=== PATIENT | female | born 1955 | race Caucasian/White ===

== ENCOUNTER 2021-03-11 05:07 | Observation (INO) ==
--- NOTE | 2021-02-12 13:10 | PAT Medication Instructions ---
Medication Instructions Date of Service February 12, 2021 Home Medications ibuprofen 600 mg PO BID PRN meloxicam 15 mg PO QAM ASK your surgeon for instructions ibuprofen 600 mg PO BID PRN meloxicam 15 mg PO QAM NOTHING TO EAT OR DRINK AFTER MIDNIGHT THE NIGHT BEFORE SURGERY. Other Notes If you have any questions please call us at [phone] or [phone] or [phone] or [phone]
--- NOTE | 2021-02-13 10:52 | Anesthesiology Consultation ---
Date of Service February 13, 2021 Assessment & Plan (1) Encounter for pre-operative examination: COVID Status: As of 02/13 assessment, patient denies travel to endemic area, known exposure/sick contacts, or symptoms of COVID19. Patient advised to adhere to social distancing guidelines, wear a mask in public and avoid large crowds or unnecessary travel in the 2 weeks leading up to surgery. Preoperative COVID19 testing to be completed prior to surgery per surgeon's arrangements (03/07). Patient encouraged to be extra cautious/conscientious with COVID precautions between COVID testing and surgery. Chart Review Chart Review: Acceptable Risk for Surgery and Patient seen in Pre Admission Testing Teaching & Discussion Instructed NPO after midnight before surgery, except medications with 15 cc of water. Medication instructions provided according to the PAT guidelines. History Surgery Operation Date: 03/11/21 07:15 Proposed Procedures p Left Anterior Total Hip Arthroplasty - Saul Donaldson DO Height/Weight Height: 5 ft 2 in Weight: 85.8 kg Allergies Allergy/AdvReac Type Severity Reaction Status Date / Time No Known Allergies Allergy Verified 02/11/21 16:05 Medications Home Medications Medication Instructions Recorded Confirmed Last Taken ibuprofen 600 mg PO BID PRN 02/11/21 02/11/21 Unknown meloxicam 15 mg PO QAM 02/11/21 02/11/21 Unknown Past Medical History Medical History Chronic back pain LOWER BACK Elevated blood pressure reading No medications. Pt to see PCP prior to surgery. Osteoarthritis Exercise / Class Metabolic Activity II 4-5 Yardwork/Stairs/Walk up hill Past Family History Family History Father Family history of diabetes mellitus Past Surgical History Surgical History History of bilateral tubal ligation History of tonsillectomy Past Anesthesia History No Hx of Anesthesia Complications and No Family Hx of Anesthesia Complications History of PONV No Hx of PONV and No Hx of Motion Sickness Social History Smoking Status: Never smoker Do You Dip or Chew Tobacco: No Hx Alcohol Use: No Hx Substance Use: No Review of Systems Pt denies any recent chest pain, shortness of breath, palpitations, cough, fever, URI, or uncontrolled acid reflux. Physical Exam Vital Signs BP: 164/87 P: 82bpm SPO2: 96% RA T: 98.2 F R: 16 ENMT Mouth: + dentures and + edentulous Thyromental Distance: > or= 3.5 Finger Breadths Mallampati Class: II Neck neck extension not limited Respiratory normal respiratory effort, lungs clear to auscultation Cardiovascular RRR, no murmur, no edema Vessels: no carotid bruit Lab Results Anesthesia Preop Results Results Anesthesia Widget: WBC 7.40 K/uL (4.8-10.8) 02/13/21 Hgb 15.1 g/dL (12.0-16.0) 02/13/21 Hct 43.7 % (37-47) 02/13/21 Plt 317 K/uL (130-400) 02/13/21 Na 141 mmol/L (136-145) 02/13/21 K 3.4 mmol/L (3.5-5.1) L 02/13/21 Cl 112 mmol/L (98-107) H 02/13/21 CO2 25 mmol/L (21-32) 02/13/21 BUN 19 mg/dl (7-18) H 02/13/21 Creat 0.82 mg/dl (0.6-1.2) 02/13/21 Glucose Level 95 mg/dl (70-99) 02/13/21 PT 10.0 Seconds (9.0-12.0) 02/13/21 PTT 24.6 Seconds (21.0-31.0) 02/13/21 INR 1.0 (0.9-1.1) 02/13/21 HA1c 5.3 % (4.5-5.6) 02/13/21 Urine Color Dark Yellow 02/13/21 Urine Appearance Clear (Clear) 02/13/21 Urine pH 5.0 (4.5-7.5) 02/13/21 Urine Specific [place] 1.035 (1.000-1.030) H 02/13/21 Urine Protein Negative (Negative) 02/13/21 Urine Glucose (UA) Negative (Negative) 02/13/21 Urine Ketones Trace (Negative) H 02/13/21 Urine Blood Negative (Negative) 02/13/21 Urine Nitrite Negative (Negative) 02/13/21 Urine Bilirubin Negative (Negative) 02/13/21 Urine Urobilinogen Negative (Negative) 02/13/21 Urine Leukocyte Esterase Negative (Negative) 02/13/21 Blood Type A Positive 02/13/21 Antibody Screen NEGATIVE 02/13/21 Testing Electrocardiogram Date: 02/13/21 Findings: + NSR @ (74bpm) Chest X-Ray Date: 02/13/21 Findings: + NAD
--- NOTE | 2021-02-28 18:11 | History & Physical Report ---
Date of Service March 11, 2021 Assessment & Plan (1) Degenerative joint disease of left hip: I have indicated the patient for left anterior total hip replacement. The risks, benefits and complications of surgery were explained to the patient which include but not limited to infection, acute blood loss, DVT/PE, injury to nerves, vessels, bone, soft tissue, arthrofibrosis, chronic pain, failure of the prosthesis, hip dislocation, leg length discrepancy, need for additional surgery, cardiac and pulmonary events and . The patient wished to proceed with surgery and informed consent was obtained at this time. We will plan for 81mg ASA BID post-operatively for DVT prophylaxis. Upon discharge the patient will be discharged home with home health services. Appropriate clearances by PCP were obtained. History of Present Illness Chief Complaint: Left hip pain/DJD Primary Care Provider: KALPANA PCP The patient is a 66 year old female who presents with complaints of severe left hip pain and DJD. The patient has failed outpatient conservative treatments to this point which included NSAIDs, activity modification, home exercise program. The patient's pain and limited function have progressed to the point where they severely hinder their activities of daily living and they no longer tolerate exercise programs. They are requesting to proceed with total hip replacement surgery. Allergies Allergy/AdvReac Type Severity Reaction Status Date / Time No Known Allergies Allergy Verified 03/11/21 05:39 Home Medications Medication Instructions Recorded Confirmed Type ibuprofen 600 mg PO BID PRN 02/11/21 03/11/21 History meloxicam 15 mg PO QAM 02/11/21 03/11/21 History Past Med/Surg History Medical History Chronic back pain LOWER BACK Elevated blood pressure reading No medications. Pt to see PCP prior to surgery. 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 Constitutional: WD/WN, vitals as above Eyes: PERRL, conjunctivae normal, anicteric sclerae ENMT: external ear and nose normal, oropharynx normal Neck: trachea midline, no thyromegaly Respiratory: normal respiratory effort, lungs clear to auscultation Cardiovascular: RRR, no murmur, no edema Gastrointestinal (Abdomen): normal bowel sounds, soft, nontender, no hepatosplenomegaly Musculoskeletal: no cyanosis or clubbing, extremities motor strength 5/5 Skin: no rashes, warm and dry Neurologic: patellar DTR's 2+ bilat, sensation intact Psychiatric: A+Ox3, euthymic affect Lymphatic: no cervical or axillary lymphadenopathy Results & Data Results & Data ([facility]) Diagnostic Findings Multiple views of the hip demonstrates severe DJD with complete loss of the joint space. +osteophytes, +sclerosis, +subchondral cysts.
[2021-03-11] MEDS ORDERED: TRANEXAMIC ACID 1,000 MG **IV Intra-op IV SCH (06:00)
[2021-03-11] MEDS ORDERED: ROPIVACAINE 0.5% HCL/PF 150 MG, BUPIVACAINE 0.75% MPF 20 ML, EPINEPHrine 30MG/30ML (OR ... INSTIL SCH (06:00)
[2021-03-11] MEDS ORDERED: FAMOTIDINE 20 MG TAB PO SCH (06:00)
[2021-03-11] MEDS ORDERED: LR 500ML BOLUS, THEN 15ML/HR IV SCH (06:00)
[2021-03-11] MEDS ORDERED: METOCLOPRAMIDE HCL 10 MG TABLET PO SCH (06:00)
[2021-03-11] MEDS ORDERED: GABAPENTIN 600 MG DOSE PO SCH (06:00)
[2021-03-11] MEDS ORDERED: CeleBREX 200 MG CAP PO SCH ×2 (06:00→12:00)
[2021-03-11] MEDS ORDERED: ceFAZolin 2000MG 2,000 MG/15 ML SYR IV SCH (06:00)
[2021-03-11] MEDS ORDERED: ACETAMINOPHEN 500 MG TAB PO SCH (06:00)
[2021-03-11] MEDS ORDERED: TRANEXAMIC ACID 1,000 MG **IV Pre-op IV SCH (06:00)
[2021-03-11] MEDS ORDERED: BUPIVACAINE 0.5 % 5 MG/1 ML PF 10ML VIAL ONE (06:22)
[2021-03-11] MEDS ORDERED: MIDAZOLAM HCL 1 MG/ML 2ML VIAL ONE (06:41)
[2021-03-11] MEDS ORDERED: LIDOCAINE 2% 2 ML VIAL/AMP(20MG/ML) INFIL ONE (06:41)
[2021-03-11] MEDS ORDERED: fentaNYL citrate 100 MCG/2 ML VIAL ONE (06:41)
[2021-03-11] MEDS ORDERED: PROPOFOL IV EMULSION 10 MG/ML 20 ML VIAL IV ONE ×2 (06:41→07:43)
[2021-03-11] MEDS ORDERED: ORTHO JOINT ANESTHETIC ONE (06:42)
--- NOTE | 2021-03-11 06:46 | History & Physical Bridge Note ---
Date of Service March 11, 2021 History & Physical Bridge Note I have examined the patient, reviewed the History & Physical and in the interval since the performance of the History & Physical I have noted the following changes of clinical significance: no changes noted
[2021-03-11] MEDS ORDERED: ePHEDrine sulfate 50 MG/ML AMP IV PRN (06:59)
[2021-03-11] MEDS ORDERED: ONDANSETRON INJ 2 MG/ML 2 ML VIAL IV PRN ×2 (06:59→11:41)
[2021-03-11] MEDS ORDERED: PHENYLEPHRINE 100MCG/ML 5ML SYR IV PRN (06:59)
[2021-03-11] MEDS ORDERED: LABETALOL HCL IV 5 MG/ML 20ML IV PRN (06:59)
[2021-03-11] MEDS ORDERED: fentaNYL citrate 100 MCG/2 ML VIAL IV PRN (06:59)
[2021-03-11] MEDS ORDERED: HYDROmorphone INJ 1 MG/ML SYRINGE IV PRN (06:59)
[2021-03-11] MEDS ORDERED: ATROPINE SULFATE 0.1 MG/ML 10ML SYR IV PRN (06:59)
[2021-03-11] MEDS ORDERED: ONDANSETRON INJ 2 MG/ML 2 ML VIAL ONE (07:42)
--- NOTE | 2021-03-11 08:48 | Post Operative Brief Note ---
Immediate Post Op Note v1 Date of Surgery March 11, 2021 Pre & Post Diagnosis Operation Date: 03/11/21 07:00 Pre-Op Diagnosis: Osteoarthritis Left Hip Post-Op Diagnosis: Osteoarthritis Left Hip I identified the patient and participated in the time-out.: Yes Procedure Operation Date: 03/11/21 07:00 Actual Procedures p Left Anterior Total Hip Arthroplasty(Left) - Saul Donaldson DO Surgeon Saul Donaldson DO Lead Pastor Donavon Bolaños Estimated Blood Loss 165 Findings Consistent with Post-Op Diagnosis Fluids See anesthesia report Specimens Femoral head Drains Hemovac Drain Anesthesia Type Spinal MAC Complications none Disposition Disposition: Recovery Room Overlapping Procedure I was present for: the critical portions of procedure. I was immediately available: during the entire case. Back up surgeon: was not required during procedure.
--- NOTE | 2021-03-11 08:50 | Operative Report ---
Post Operative Report Pre & Post Diagnosis Operation Date: 03/11/21 07:00 Pre-Op Diagnosis: Osteoarthritis Left Hip Post-Op Diagnosis: Osteoarthritis Left Hip I identified the patient and participated in the time-out.: Yes Procedure Operation Date: 03/11/21 07:00 Actual Procedures p Left Anterior Total Hip Arthroplasty(Left) - Saul Donaldson DO Surgeon Saul Donaldson DO Account Executive Software Sales Donavon Bolaños Estimated Blood Loss 165 Findings Consistent with Post-Op Diagnosis Fluids See anesthesia report Specimens femoral head Anesthesia Type Spinal MAC Complications none Disposition Disposition: Recovery Room Indications The patient is a 66-year-old female who presents with severe progressive left hip DJD who has failed outpatient conservative treatments. I indicated the patient for a anterior total hip replacement and the risks and benefits were explained in detail which include but not limited to infection, bleeding, blood clot, damage to surrounding bone, nerves, vessels, soft tissue, hip dislocation, failure of the prosthesis, leg length discrepancy, need for additional surgery and . The patient agreed to proceed with replacement of the hip and informed consent was obtained. Appropriate clearances were obtained. Description of Procedure COMPONENTS USED: [employer] hip system: Acetabulum size 48, femur size 4 high offset, femoral head 32+0, liner 40x32, acetabular screw 25 mm x 1. DESCRIPTION OF PROCEDURE: Following satisfactory spinal anesthesia, the patient was placed supine on the OR table. The right leg was placed in the well leg brito and the left leg in the traction device. The left leg was prepared with ChloraPrep and draped sterilely. A surgical timeout was performed, patient identified and site carson verified. Appropriate antibiotics were given. A standard anterior approach in the interval between the sartorius and tensor muscles was performed. Dissection was carried down through subcutaneous tissues. Electrocautery was utilized for hemostasis. Circumflex femoral vessels were identified, tied and ligated. The anterior capsular fat pad was removed and the capsulotomy was performed revealing the arthritic femoral neck and head. A femoral neck cut was made with reciprocating saw and the bone fragments removed. The acetabular self-retraining retractor was placed. Acetabular reaming was completed under fluoroscopic guidance, a 48 shell was impacted into an anatomic position and secured with a acetabular screw. Local anesthetic was placed and following irrigation, the polyethylene liner was placed. The femur was placed into position of external rotation, extension and adduction. Femoral canal was prepared up to the size 4 high offset. Trial reduction with a 32+0 neck length head showed good soft tissue tension, leg lengths restored, and good fit and fill of the proximal canal using fluoroscopic landmarks. The hip was dislocated. The trial component was removed. The final implant was placed. The hip was irrigated with sterile saline solution and reduced. A Betadine soak was performed. After 3 minutes, the hip was once more irrigated with copious sterile saline solution with bacitracin. [place]-incisional soft tissue was injected utilizing [place] Orthomix which includes a combination of Ropivicaine 0.5% 150mg, Bupivicaine 0.5%/Epinephrine 1:200,000 30ml, Toradol 30mg, Dexamethasone 4mg, Ketamine 10mg, Clonidine 100mcg and NSS 30ml solution. The capsule was then closed with 1-0 Vicryl interrupted figure of eight sutures. The fascia was closed with a running suture of #1 Vicryl, the subcutaneous tissues with 2-0 Vicryl and the skin was closed with wilbert and a sterile dry dressing was applied which included rosalba incisional VAC. The patient tolerated the procedure well and was transported to PACU in stable condition. Due to the complex nature of the procedure, the entire surgery was performed with the operational assistance of Donavon Bolaños PA-C. The infertility medical assistant, under direct supervision, was involved in the actual performance of all aspects of the surgical procedure including patient positioning, hemostasis, tissue retraction, instrument management and wound closure. I attest to the content of the Intraoperative Record and any orders documented therein. Any exceptions are noted below.
--- NOTE | 2021-03-11 09:44 | Fluoroscopy Report ---
INTRAOPERATIVE RADIOGRAPHS CLINICAL HISTORY: Left hip arthroplasty. Fluoroscopy time: 39 seconds. FINDINGS: 2 spot fluoroscopic images of the left hip from an arthroplasty procedure are presented. A bipolar left hip arthroplasty is in near-anatomic alignment. A single cortical lag screw transfixes t he acetabular cup. There is no evidence of fracture on these fluoroscopic views. IMPRESSION: Intraoperative left hip arthroplasty images as above. Electronically signed by: Ken Lockhart M.D. 03/11/2021 9:43 AM
--- NOTE | 2021-03-11 09:48 | XRay Report ---
SINGLE VIEW PELVIS; SINGLE VIEW LEFT HIP CLINICAL HISTORY: Postoperative examination. FINDINGS: An AP portable view of the hips and pelvis with a crosstable lateral portable view of the l eft hip are obtained. A bipolar left hip arthroplasty is in near-anatomic alignment. A single cortica l lag screw transfixes the acetabular cup. No acute fracture is identified. There are expected postop erative changes overlying the left hip including skin clips, subcutaneous gas, a surgical drain, and soft tissue swelling. IMPRESSION: Expected postoperative findings status post left hip arthroplasty. No acute fracture is s een. ACT 112: Negative or not required by law. Electronically signed by: Ken Lockhart M.D. 03/11/2021 9:47 AM
--- NOTE | 2021-03-11 10:13 | Anesthesiology Progress Note ---
Date of Service March 11, 2021 Anesthesia Post Procedure Vital Signs Vital Signs: Temp Pulse Pulse Resp BP BP Pulse Ox 03/11/21 10:00 71 18 138/90 98 03/11/21 09:50 36.1 C L 65 16 129/78 96 03/11/21 09:40 63 19 138/78 100 03/11/21 09:30 67 18 129/72 100 03/11/21 09:20 76 18 117/80 100 03/11/21 09:11 36.2 C L 79 18 115/56 L 95 03/11/21 05:43 37 C 78 18 167/96 H 96 Transfer of Care Handoff Completed per policy Notes Mental Status: alert / awake / arousable Patient Amnestic to Procedure: Yes Nausea / Vomiting: adequately controlled Pain: adequately controlled Airway Patency, RR, SpO2: stable & adequate BP & HR: stable & adequate Hydration State: stable & adequate Neuraxial Anesthesia: was administered and sensory block is resolving Anesthetic Complications: no major complications apparent and Pt Satisfied with anesthetic care
[2021-03-11] MEDS ORDERED: HYDROmorphone INJ 0.5 MG/0.5 ML SYR IV PRN (11:41)
[2021-03-11] MEDS ORDERED: NALOXONE HCL 0.4 MG/1 ML VIAL/CARP IV PRN (11:41)
[2021-03-11] MEDS ORDERED: SODIUM CHLORIDE 0.9% 1000ML 1,000 ML IV SCH (11:41)
[2021-03-11] MEDS ORDERED: bisacodyL 10 MG SUPP PR PRN (11:41)
[2021-03-11] MEDS ORDERED: diphenhydrAMINE Capsule 25 MG CAP PO PRN (11:41)
[2021-03-11] MEDS ORDERED: MAGNESIUM HYDROXIDE SUSP 30 ML UDC PO PRN (11:41)
[2021-03-11] MEDS ORDERED: METOCLOPRAMIDE HCL INJ 5 MG/ML 2 ML VIAL IV PRN (11:41)
--- NOTE | 2021-03-11 12:16 | Hospitalist Consultation ---
Date of Consultation March 11, 2021 Assessment & Plan (1) Degenerative joint disease of left hip: - POD#[address] Donaldson - activity and wound care orders as per ortho - pain control with bowel regimen - PT/OT - monitor H/H for acute blood loss anemia and transfuse blood products PRN - EBL 165cc (2) DVT prophylaxis: -TEDs/SCDs and Aspirin 81 mg twice daily as per orthopedics Thank you for this consultation. We will follow the patient with you during their hospital stay. You can reach a member of the [facility] Hospitalist Team 12/04 via the [facility] in [place] [facility]. Supervising Physician Co-Signing Physician Notes Pt was seen and examined. Agreed with Kasie ECHEVERRIA exam, assessment and plan. 66-year-old female with PMH osteoarthritis, status post left BONITA today performed by Dr. Donaldson. No post op complication. Pain control. Continue incentive spirometry. PT/OT as per ortho. Fall precaution. Will monitor H/H. MD Rian History of Present Illness Reason for Consultation: Postop medical management Requesting Physician: Dr. Donaldson Attending Physician: Dr. Modi History of Present Illness 66-year-old female with PMH osteoarthritis, and other problems listed below who is status post left BONITA today by Dr. Donaldson. Postoperatively, the patient is doing well. She reports her pain is well controlled. She denies numbness or tingling to lower extremities. No chest pain or shortness of breath. Denies abdominal pain and nausea. No lightheadedness or dizziness. She has not voided since surgery. Allergies Allergy/AdvReac Type Severity Reaction Status Date / Time No Known Allergies Allergy Verified 03/11/21 05:39 Home Medications Medication Instructions Recorded Confirmed Type acetaminophen 1,000 mg PO Q8 PRN #90 tab 03/11/21 Rx aspirin 81 mg PO BID #56 tab 03/11/21 Rx celecoxib [Celebrex] 200 mg PO BID PRN #30 cap 03/11/21 Rx oxycodone 5 mg PO Q6H PRN #30 tab MDD 4 03/11/21 Rx sennosides [Senokot] 17.2 mg PO HS PRN #30 tab 03/11/21 Rx Patient History Medical History Chronic back pain LOWER BACK Elevated blood pressure reading No medications. Pt to see PCP prior to surgery. 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 Other Information That Helps Us Care for You: No Feels Safe at Home: Yes Safety Concerns: Feels Safe At This Time Assistive Devices: Wheelchair Review of Systems Review of Systems: ROS per HPI, all other systems reviewed and negative Physical Exam Constitutional: WD/WN, vitals as above Eyes: PERRL, conjunctivae normal, anicteric sclerae ENMT: external ear and nose normal, oropharynx normal Respiratory: normal respiratory effort, lungs clear to auscultation Cardiovascular: Rate/Rhythm: regular rate and regular rhythm Vessels: normal peripheral pulses Extremities: + edema (+1 edema BLE) Gastrointestinal (Abdomen): normal bowel sounds, soft, nontender, no hepatosplenomegaly Musculoskeletal: no cyanosis or clubbing, extremities motor strength 5/5 S/p left hip surgery, surgical dressing dry and intact, CSM checks intact to LLE Skin: no rashes, warm and dry Neurologic: PERRL, EOMI, accommodation nl, no face palsy, no dysarthria Psychiatric: A+Ox3, euthymic affect Results & Data Results & Data ([facility]) Vital Signs (Past 12 Hours) Vital Signs Temp Pulse Pulse Resp BP BP Pulse Ox 03/11/21 11:15 68 18 139/79 95 03/11/21 11:00 63 14 138/77 95 03/11/21 10:45 36.3 C L 62 16 136/75 97 03/11/21 10:30 36.4 C L 73 18 131/74 97 03/11/21 10:20 65 18 132/79 95 03/11/21 10:10 64 16 136/77 97 03/11/21 10:00 71 18 138/90 98 03/11/21 09:50 36.1 C L 65 16 129/78 96 03/11/21 09:40 63 19 138/78 100 03/11/21 09:30 67 18 129/72 100 03/11/21 09:20 76 18 117/80 100 03/11/21 09:11 36.2 C L 79 18 115/56 L 95 03/11/21 05:43 37 C 78 18 167/96 H 96
[2021-03-11] MEDS: DOCUSATE SODIUM 100 MG CAP PO SCH ×2 (13:12→19:54)
[2021-03-11] MEDS: KETOROLAC TROMETHAMINE 15 MG/ML VIAL IV SCH ×3 (13:12→22:36)
[2021-03-11] MEDS: MULTIVITAMIN TAB PO SCH (13:12)
[2021-03-11] MEDS: ACETAMINOPHEN 500 MG TAB PO SCH ×2 (13:13→22:36)
[2021-03-11] MEDS: ceFAZolin 2000MG 2,000 MG/15 ML SYR IV SCH ×2 (14:03→22:36)
[2021-03-11] MEDS: oxyCODONE HCL IR 5 MG TAB (IMMEDIATE RELEASE) PO PRN ×2 (14:03→19:53)
[2021-03-11] MEDS ORDERED: SENNA 8.6 MG TAB PO SCH (21:00)
--- NOTE | 2021-03-11 21:54 | Orthopedic Progress Note ---
Date of Service March 11, 2021 Assessment & Plan (1) Degenerative joint disease of left hip: s/p Left anterior BONITA -ancef x 24 -DVT ppx: SCDs, TEDs, 81mg ASA BID -WBAT LLE -PT/OT -PO XR demonstrates a well aligned well fixed prosthesis without fracture/dislocation -am labs -DC planning Admission and Anticipated Discharge Date Admission Date: March 11, 2021 Subjective Post Operative Progress Note Patient seen sitting in chair at bedside, comfortable, denies complaints, pain well controlled, no acute issues. Review of Systems Review of Systems: All systems reviewed & are unremarkable except as noted in HPI & below Constitutional: as per Subjective / HPI Physical Exam Physical Exam: LLE NVSI +EHL/FHL/TA/GS SILT grossly, +2 DP pulse, compartments soft NT, dressing cdi. Constitutional: WD/WN, vitals as above Results & Data ([facility]) Vital Signs (Past 12 Hours) Vital Signs Temp Pulse Pulse Resp BP Pulse Ox 03/11/21 19:22 36.8 C 67 16 145/77 H 95 03/11/21 14:39 36.8 C 68 20 157/87 H 97 03/11/21 13:44 36.6 C 71 20 137/75 96 03/11/21 12:45 36.5 C 76 20 139/78 96 03/11/21 12:19 36.5 C 77 20 146/75 H 96 03/11/21 11:40 36.6 C 77 16 158/91 H 95 03/11/21 11:15 68 18 139/79 95 03/11/21 11:00 63 14 138/77 95 03/11/21 10:45 36.3 C L 62 16 136/75 97 03/11/21 10:30 36.4 C L 73 18 131/74 97 03/11/21 10:20 65 18 132/79 95 03/11/21 10:10 64 16 136/77 97 03/11/21 10:00 71 18 138/90 98
[2021-03-12] MEDS: oxyCODONE HCL IR 5 MG TAB (IMMEDIATE RELEASE) PO PRN ×3 (01:46→11:56)
[2021-03-12] MEDS: ACETAMINOPHEN 500 MG TAB PO SCH ×2 (05:29→13:43)
[2021-03-12] MEDS: KETOROLAC TROMETHAMINE 15 MG/ML VIAL IV SCH (05:30)
[2021-03-12 05:58] LABS: Basophils # (auto) 0.02 K/uL (0-0.2); Basophils % (auto) 0.2 %; Eosinophils # (auto) 0.06 K/uL (0-0.5); Eosinophils % (auto) 0.7 %; Hematocrit (blood only) 35.4 % (37-47); Hemoglobin 11.7 g/dL (12.0-16.0); Immature Granulocytes # (auto) 0.01 K/uL (0.00-0.02); Immature Granulocytes % (auto) 0.1 %; Lymphocytes # (auto) 1.98 K/uL (1.2-3.4); Lymphocytes % (auto) 21.7 %; Mean Corpuscular Hemoglobin 31.3 pg (25-34); Mean Corpuscular Hgb Conc 33.1 g/dL (32-36); Mean Corpuscular Volume 94.7 fL (80-100); Mean Platelet Volume 9.6 fL (7.4-10.4); Monocytes # (auto) 0.65 K/uL (0.11-0.59); Monocytes % (auto) 7.1 %; Neutrophils % (auto) 70.2 %; Platelet Count 273 K/uL (130-400); RDW Coefficient of Variation 12.5 % (11.5-14.5); RDW Standard Deviation 43.2 fL (36.4-46.3); Red Blood Count 3.74 M/uL (4.2-5.4); White Blood Count 9.12 K/uL (4.8-10.8)
[2021-03-12 06:35] LABS: BUN Creatinine Ratio 28.5 (10-20); Calcium 8.5 mg/dl (8.5-10.1); Est GFR (African American) 92.5 ml/min; Est GFR (Non-African American) 79.8 ml/min; Potassium 4.1 mmol/L (3.5-5.1)
--- NOTE | 2021-03-12 07:38 | Orthopedic Progress Note ---
Date of Service March 12, 2021 Assessment & Plan (1) Degenerative joint disease of left hip: s/p Left anterior BONITA POD#1 -ancef x 24 -DVT ppx: SCDs, TEDs, 81mg ASA BID -WBAT LLE -PT/OT -PO XR demonstrates a well aligned well fixed prosthesis without fracture/dislocation -am labs - as above, hgb 11.7 -DC planning - home with HH Admission and Anticipated Discharge Date Admission Date: March 11, 2021 Subjective Post Operative Progress Note Patient seen sitting in chair at bedside, comfortable, denies complaints, pain well controlled, no acute issues. Denies F/C/N/V/SOB/CP. Review of Systems Review of Systems: All systems reviewed & are unremarkable except as noted in HPI & below Constitutional: as per Subjective / HPI Physical Exam Physical Exam: LLE NVSI +EHL/FHL/TA/GS SILT grossly, +2 DP pulse, compartments soft NT, dressing cdi. Constitutional: WD/WN, vitals as above Eyes: PERRL, conjunctivae normal, anicteric sclerae ENMT: external ear and nose normal, oropharynx normal Neck: trachea midline, no thyromegaly Respiratory: normal respiratory effort, lungs clear to auscultation Cardiovascular: RRR, no murmur, no edema Gastrointestinal (Abdomen): normal bowel sounds, soft, nontender, no hepatosplenomegaly Musculoskeletal: no cyanosis or clubbing, extremities motor strength 5/5 Skin: no rashes, warm and dry Neurologic: patellar DTR's 2+ bilat, sensation intact Psychiatric: A+Ox3, euthymic affect Lymphatic: no cervical or axillary lymphadenopathy Results & Data ([facility]) Vital Signs (Past 12 Hours) Vital Signs Temp Pulse Resp BP Pulse Ox 03/12/21 05:56 37.1 C 70 16 160/75 H 95 03/12/21 03:29 36.9 C 71 16 155/74 H 97 03/11/21 22:36 36.9 C 69 16 136/73 98 Laboratory Results 03/12/21 03/12/21 Range/Units 05:30 05:30 WBC 9.12 (4.8-10.8) K/uL RBC 3.74 L (4.2-5.4) M/uL Hgb 11.7 L (12.0-16.0) g/dL Hct 35.4 L (37-47) % MCV 94.7 (80-100) fL MCH 31.3 (25-34) pg MCHC 33.1 (32-36) g/dL RDW Std Deviation 43.2 (36.4-46.3) fL RDW Coeff of Eliezer 12.5 (11.5-14.5) % Plt Count 273 (130-400) K/uL MPV 9.6 (7.4-10.4) fL Immature Gran % (Auto) 0.1 % Neut % (Auto) 70.2 % Lymph % (Auto) 21.7 % [place] % (Auto) 7.1 % Eos % (Auto) 0.7 % Baso % (Auto) 0.2 % Neut # (Auto) 6.40 (1.4-6.5) K/uL Lymph # (Auto) 1.98 (1.2-3.4) K/uL [place] # (Auto) 0.65 H (0.11-0.59) K/uL Eos # (Auto) 0.06 (0-0.5) K/uL Baso # (Auto) 0.02 (0-0.2) K/uL Immature Gran # (Auto) 0.01 (0.00-0.02) K/uL Sodium 138 (136-145) mmol/L Potassium 4.1 (3.5-5.1) mmol/L Chloride 109 H (98-107) mmol/L Carbon Dioxide 27 (21-32) mmol/L Anion Gap 2.0 L (3-11) BUN 22 H (7-18) mg/dl Creatinine 0.78 (0.6-1.2) mg/dl Est Cr Clr Drug Dosing 73.0 ml/min Est GFR ( Amer) 92.5 ml/min Est GFR (Non-Af Amer) 79.8 ml/min BUN/Creatinine Ratio 28.5 H (10-20) Glucose 98 (70-99) mg/dl Calcium 8.5 (8.5-10.1) mg/dl
[2021-03-12] MEDS: MULTIVITAMIN TAB PO SCH (08:12)
[2021-03-12] MEDS: DOCUSATE SODIUM 100 MG CAP PO SCH (08:12)
[2021-03-12] MEDS ORDERED: ASPIRIN 81 MG ECTAB PO SCH (09:00)
--- NOTE | 2021-03-12 12:35 | Communication Note ---
Date of Service: March 12, 2021 Progressing well with PT. Pain controlled. Plan for dc to home today.
--- NOTE | 2021-03-12 14:29 | Hospitalist Progress Note ---
Date of Service March 12, 2021 Assessment & Plan (1) Degenerative joint disease of left hip: - POD#[address] Donaldson - activity and wound care orders as per ortho - pain control with bowel regimen - PT/OT - monitor H/H for acute blood loss anemia and transfuse blood products PRN Anemia - acute blood loss/ dilutional - current Hgb 11.7 (preop Hgb ~ 15) - post op anemia expected, no need for blood transfusion - pt has no concerning symptoms (2) DVT prophylaxis: -TEDs/SCDs and Aspirin 81 mg twice daily as per orthopedics Thank you for this consultation. We will follow the patient with you during their hospital stay. You can reach a member of the [facility] Hospitalist Team 12/04 via the [facility] role in [place] [facility]. Admission and Anticipated Discharge Date Admission Date: March 11, 2021 Subjective Patient seen in postop follow-up Currently she feels quite well, denies any fevers, chills, chest pain, shortness of breath Reports good appetite, passing gas but no BM yet, voiding without difficulty otherwise Pain well controlled Reports her family at home will be helping her on discharge Review of Systems Review of Systems: All systems reviewed & are unremarkable except as noted in HPI & below Constitutional: no fever and no chills Respiratory: no cough and no dyspnea Cardiovascular: no chest pain and no palpitations Gastrointestinal: no abdominal pain, no nausea and no vomiting Physical Exam Physical Exam: Constitutional: WD/WN, vitals as above Eyes: PERRL, EOMI, conjunctivae normal, anicteric sclerae ENMT: external ear and nose normal, oropharynx normal Respiratory: normal respiratory effort, lungs clear to auscultation Cardiovascular: Rate/Rhythm: regular rate and regular rhythm Vessels: normal peripheral pulses Extremities: + edema (+1 edema BLE) Gastrointestinal (Abdomen): normal bowel sounds, soft, nontender Musculoskeletal: extremities motor strength 5/5 S/p left hip surgery, surgical dressing dry and intact, CSM checks intact to LLE Skin: no rashes, warm and dry Neurologic: PERRL, EOMI,no face palsy, no dysarthria Psychiatric: A+Ox3, euthymic affect Results & Data Results & Data ([facility]) Vital Signs (Past 12 Hours) Vital Signs Temp Pulse Pulse Resp BP Pulse Ox 03/12/21 11:04 36.7 C 68 78 17 127/74 95 03/12/21 10:59 36.7 C 78 17 127/74 95 03/12/21 05:56 37.1 C 70 16 160/75 H 95 03/12/21 03:29 36.9 C 71 16 155/74 H 97 Laboratory Results 03/12/21 03/12/21 Range/Units 05:30 05:30 WBC 9.12 (4.8-10.8) K/uL RBC 3.74 L (4.2-5.4) M/uL Hgb 11.7 L (12.0-16.0) g/dL Hct 35.4 L (37-47) % MCV 94.7 (80-100) fL MCH 31.3 (25-34) pg MCHC 33.1 (32-36) g/dL RDW Std Deviation 43.2 (36.4-46.3) fL RDW Coeff of Eliezer 12.5 (11.5-14.5) % Plt Count 273 (130-400) K/uL MPV 9.6 (7.4-10.4) fL Immature Gran % (Auto) 0.1 % Neut % (Auto) 70.2 % Lymph % (Auto) 21.7 % [place] % (Auto) 7.1 % Eos % (Auto) 0.7 % Baso % (Auto) 0.2 % Neut # (Auto) 6.40 (1.4-6.5) K/uL Lymph # (Auto) 1.98 (1.2-3.4) K/uL [place] # (Auto) 0.65 H (0.11-0.59) K/uL Eos # (Auto) 0.06 (0-0.5) K/uL Baso # (Auto) 0.02 (0-0.2) K/uL Immature Gran # (Auto) 0.01 (0.00-0.02) K/uL Sodium 138 (136-145) mmol/L Potassium 4.1 (3.5-5.1) mmol/L Chloride 109 H (98-107) mmol/L Carbon Dioxide 27 (21-32) mmol/L Anion Gap 2.0 L (3-11) BUN 22 H (7-18) mg/dl Creatinine 0.78 (0.6-1.2) mg/dl Est Cr Clr Drug Dosing 73.0 ml/min Est GFR ( Amer) 92.5 ml/min Est GFR (Non-Af Amer) 79.8 ml/min BUN/Creatinine Ratio 28.5 H (10-20) Glucose 98 (70-99) mg/dl Calcium 8.5 (8.5-10.1) mg/dl Medications Administered Current Inpatient Medications Acetaminophen (Acetaminophen 500 Mg Tab) 1,000 mg PO Q8 [facility] Stop: 04/10/21 13:59 Last Admin: 03/12/21 13:43 Dose: 1,000 mg Documented by: Aspirin (Aspirin 81 Mg Ectab) 81 mg PO BID [facility] Stop: 04/11/21 08:59 Last Admin: 03/12/21 08:13 Dose: 81 mg Documented by: Bisacodyl (Bisacodyl 10 Mg Supp) 10 mg [place] DAILY PRN PRN Reason: Constipation Stop: 04/10/21 11:40 Celecoxib (Celebrex 200 Mg Cap) 200 mg PO BID [facility] Stop: 04/10/21 11:59 Last Admin: 03/12/21 08:12 Dose: Not Given Documented by: Diphenhydramine HCl (Diphenhydramine Capsule 25 Mg Cap) 25 mg PO Q8H PRN PRN Reason: Itching Stop: 04/10/21 11:40 Docusate Sodium (Docusate Sodium 100 Mg Cap) 100 mg PO BID [facility] Stop: 04/10/21 11:59 Last Admin: 03/12/21 08:12 Dose: 100 mg Documented by: Hydromorphone HCl (Hydromorphone Inj 0.5 Mg/0.5 Ml Syr) 0.5 mg IV Q4H PRN PRN Reason: Pain or Pre PT Stop: 03/25/21 11:40 Magnesium Hydroxide (Magnesium Hydroxide Susp 30 Ml Udc) 30 ml PO Q6H PRN PRN Reason: Constipation Stop: 04/10/21 11:40 Metoclopramide HCl (Metoclopramide Hcl Inj 5 Mg/Ml 2 Ml Vial) 10 mg IV Q6H PRN PRN Reason: Nausea And Vomiting Stop: 04/10/21 11:40 Multivitamins (Multivitamin Tab) 1 tab PO QAM [facility] Stop: 04/10/21 11:59 Last Admin: 03/12/21 08:12 Dose: 1 tab Documented by: Naloxone HCl (Naloxone Hcl 0.4 Mg/1 Ml Vial/Carp) 0.1 mg IV Q5M PRN PRN Reason: Oversedation/Resp Depression Stop: 04/10/21 11:40 Ondansetron HCl (Ondansetron Inj 2 Mg/Ml 2 Ml Vial) 4 mg IV Q6H PRN PRN Reason: Nausea And Vomiting Stop: 04/10/21 11:40 Oxycodone HCl (Oxycodone Hcl Ir 5 Mg Tab (Immediate Release)) 5 - 10 mg PO Q4H PRN PRN Reason: Pain or Pre PT Stop: 03/25/21 11:40 Last Admin: 03/12/21 11:56 Dose: 5 mg Documented by: Sennosides (Senna 8.6 Mg Tab) 17.2 mg PO HS [facility] Stop: 04/10/21 20:59 Last Admin: 03/11/21 19:54 Dose: 17.2 mg Documented by:
--- NOTE | 2021-03-12 23:12 | Discharge Summary ---
Date of Service March 12, 2021 Admission HPI Per Admitting Provider The patient is a 66 year old female who presents with complaints of severe left hip pain and DJD. The patient has failed outpatient conservative treatments to this point which included NSAIDs, activity modification, home exercise program. The patient's pain and limited function have progressed to the point where they severely hinder their activities of daily living and they no longer tolerate exercise programs. They are requesting to proceed with total hip replacement surgery. Principal Diagnosis Left anterior total hip replacement Discharge Exam LLE NVSI +EHL/FHL/TA/GS SILT grossly, +2 DP pulse, compartments soft NT, dressing cdi. Constitutional WD/WN, vitals as above Discharge Data Allergies Allergy/AdvReac Type Severity Reaction Status Date / Time No Known Allergies Allergy Verified 03/11/21 05:39 Consultations 03/06/21 11:08 Consult Hospitalist Routine Procedures Performed Operation Date: 03/11/21 07:00 Actual Procedures p Left Anterior Total Hip Arthroplasty(Left) - Saul Donaldson DO Ordered Studies 03/11/21 07:00 FL hip LT 1V Routine Hospital Course (1) Degenerative joint disease of left hip: The patient is a 66 -year-old female who presents with long standing history of severe left hip DJD and failed outpatient conservative treatments. The patient's symptoms have progressed to the point where it has been difficult to perform even normal activities of daily living. I indicated the patient for a left anterior total hip arthroplasty, the risks, benefits and complications of the procedure include but not limited to infection, bleeding, damage to bone, nerves, vessels, surrounding soft tissue, may develop blood clots, loss of function, leg length discrepancy, dislocation, failure of the components, loosening of the components, the need for additional surgery and . The patient wished to proceed with surgery at this time and informed consent was obtained. Hospital Course: On 03/11/21 the patient was taken to the operating room, adequate anesthesia administered and underwent a left anterior total hip arthroplasty. The patient tolerated the procedure well and was taken to the PACU in stable condition. Post-operatively the patient was started on a DVT ppx medication and given appropriate IV antibiotics. Consults were placed to physical therapy, o ccupational therapy and case management. On POD#1, the patient did well overnight and their pain was well controlled. Labs were drawn and the Hgb was 11.7. The patient progressed well with PT. Dressings were changed at this time and the incision was clean, dry and intact. The patients hospital stay was relatively uneventful and they were deemed stable by the orthopedic team and consultants to be discharged home with HH on 03/12/21. Discharge Instructions: Upon discharge the patient may weight bear as tolerates through their operative extremity. They were instructed to keep the incision clean and dry at all times. The patient may shower but should not submerge the incision, avoid bathing, pools and hot tubs. The patient was given a script for pain medication and should take as instructed. The patient was given a script for DVT ppx 81mg ASA BID and should take as directed. The patient was instructed to not drive or travel for long distances until cleared to do so. If the patient develops any symptoms of fevers, chills, nausea, vomiting, increased redness, swelling, pain or drainage from the surgical site, they should notify the office and/or proceed to the nearest emergency room. The patient should follow up in 10-14 days after surgery for their routine post-operative follow-up appointment and should call the office, to confirm the date and time. s/p Left anterior BONITA POD#1 -ancef x 24 -DVT ppx: SCDs, TEDs, 81mg ASA BID -WBAT LLE -PT/OT -PO XR demonstrates a well aligned well fixed prosthesis without fracture/dislocation -am labs - as above, hgb 11.7 -DC planning - home with Total Time Total Time Spent Total Time Spent (In Minutes): 30 Discharge Plan Discharge Items Patient Disposition: Home - Home Health Services Reason For Visit: Osteoarthritis Left Hip Discharge Diagnosis: Left anterior total hip replacement Condition on Discharge: Good Activity: Per Instructions section Lifting: Wait until after follow-up appointment Bathing: Keep incision dry Bathing Comment: No bathing, pools or hot tubs. Sexual Activity: Wait until after follow-up appointment Exercise/Sports: Wait until after follow-up appointment Driving/Machine Use: No driving. Weightbearing: Full weightbearing Non-emergency contact: Primary Care Provider and Surgeon Call non-emergency contact if: you have any medication questions, your symptoms worsen, your pain is not controlled, your pain is worsening, your pain is unusual for you, your pain is concerning for you, you have a fever, your rectal temperature is above 100.4, your temperature is above 101.5, your wound has increased redness, your wound has increased drainage and your wound pain has increased Follow-up/Referrals: Noe Mckeon MD [Primary Care Provider] - Diet: Regular Addtl Attending Provider Instructions: ACTIVITY RECOMMENDATIONS: SELF CARE INSTRUCTIONS AFTER TOTAL HIP REPLACEMENT : Direct Anterior Approach Until the incision and soft tissues around your hip have healed, there is a possibility that the hip prosthesis could dislocate. A. Hip flexion ( Up & Down out of chair or steps ) may be difficult. This is normal. B. Numbness in front of the thigh is also normal for a few weeks. C. Use hand rails when walking on stairs. D. Wear low heeled shoes with non-slip soles. E. Be sure that your floors are free of things that could trip you - throw rugs, electrical cords, small objects. Avoid wet and waxed floors, especially with crutches and canes. F. Try to walk several times a day with rest periods between. G. Continue with all the exercises taught to you in the hospital. Again, make walking a part of your daily routine. SPECIAL CARE INSTRUCTIONS: VERY IMPORTANT TO READ AND REVIEW A. You may still be at risk for phlebitis and blood clots. 1. Wear surgical stockings (CHEY hose) for 2 weeks after surgery to improve circulation and reduce swelling. 2. Take Aspirin 81mg twice daily for 4 weeks or as directed by your doctor. This is your blood thinner. 3. High risk patients may be prescribed a stronger blood thinner if necessary. 4. If you are on Coumadin normally, your family doctor/traffic control technician should monitor your blood work. Expect a phone call the day of or the day after bloodwork is drawn to adjust your dosage. B. You must take antibiotics before having dental work, bladder, bowel and other surgery. Your doctor will provide you with a permanent card to carry describing precautions. C. Call [facility] if you have a fever, redness or swelling around the incision, cloudy drainage from incision, or sudden increase in pain in your hip, not relieved by your regular pain medication. D. Please call the office at if you have any concerns or questions about your operation or recovery. * YOU MAY SHOWER, NO TUB BATHS UNTIL CLEARED BY YOUR DOCTOR. - Keep an extra close eye on the top portion of your incision. Be sure to keep clean & dry. * WEAR CHEY HOSE 20 HOURS PER DAY FOR 2 WEEKS. * YOU MAY PROGRESS FROM A WALKER, TO A CANE, TO INDEPENDENT AT YOUR OWN PACE. * MOST PATIENTS WILL HAVE HOME NURSING FOR THERAPY. IF YOU DECIDE TO DO OUTPATIENT PHYSICAL THERAPY, PLEASE SCHEDULE THIS 3 TIMES PER WEEK. *KOURTNEY incisional vac is a special dressing covering your incision. This dressing provides a sterile dry environment while you are healing. The dressing is to be left in place for 7 days post-operatively. Your home nurse or surgeon will remove. If you develop any redness or blisters or have any questions notify your surgeon immediately. FOLLOW UP VISIT: If appointment is not already scheduled: Please call [facility] to make a follow-up appointment for 2 weeks after your surgery at . Pending Studies at Discharge: No Stand-Alone Forms: My [facility] [employer] In [employer], Opioid Pain Management, Smoking Cessation Medications and DC Order Prescriptions: New celecoxib [Celebrex] 200 mg Capsule 200 mg PO BID PRN (Reason: pain/inflammation) Qty: 30 RF: 0 aspirin 81 mg Tablet,Delayed Release (Dr/Ec) 81 mg PO BID Qty: 56 RF: 0 acetaminophen 500 mg Tablet 1,000 mg PO Q8 PRN (Reason: pain/fevers) Qty: 90 RF: 0 oxycodone 5 mg Tablet 5 mg PO Q6H MDD 4 PRN (Reason: pain) Qty: 30 RF: 0 sennosides [Senokot] 8.6 mg Tablet 17.2 mg PO HS PRN (Reason: constipation) Qty: 30 RF: 0 Discontinued meloxicam 15 mg Tablet 15 mg PO QAM RF: 0 ibuprofen 200 mg Tablet 600 mg PO BID PRN (Reason: Pain) RF: 0 Discharge Orders: Discharge Order (Routine); Ordered 03/12/21 Ordered By: Donavon Paige/Other Patient Handouts: DVT Post Op Prevention Admission Data Admit Date/Time: 03/11/21 09:23 Attending Provider: Saul Donaldson Admit Provider: Saul Donaldson Primary Care Provider: Noe Mckeon I. Other Providers: Geronimo Castaneda ; [facility] Other Interventions: Discharge Summary Assessment (RN) Last Done: 03/12/21 11:04
== END 2021-03-12 15:30 | disposition home health service (06) ==
LOC: PACUINP 05:07 → ASU 05:07 → 3E 11:39
DX: M16.12 Unilateral primary osteoarthritis, left hip; Z20.822 Contact with and (suspected) exposure to COVID-19; D62 Acute posthemorrhagic anemia; I10 Essential (primary) hypertension; M65.9 Synovitis and tenosynovitis, unspecified; Z79.899 Other long term (current) drug therapy